=== PATIENT | female | born 1940 | race Caucasian/White ===

== ENCOUNTER 2020-01-18 09:05 | Observation (INO) ==
[2020-01-18] MEDS ORDERED: NS 0.9% 1000 ml BAG 1,000 ML IV ONE (09:07)
[2020-01-18] MEDS ORDERED: Iodixanol (CONTRAST) 320 MG/ML 100 ML SDV IV ONE (09:30)
[2020-01-18] MEDS ORDERED: Aspirin EC 81 mg TAB.EC (enteric coated) PO ONE (10:00)
[2020-01-18 10:01] LABS: ABS Eosinophils 0.1 10^3/ul (0-0.6); ABS Lymphocytes 0.9 10^3/ul (1.0-4.8); ABS Monocytes 0.5 10^3/ul (0-0.8); ABS Neutrophils 3.8 10^3/ul (1.5-7.7); Eosinophil % 2.2 %; Hematocrit 39 % (35-47); Hemoglobin 13.3 g/dL (12.0-16.0); Lymphocyte % 17.4 %; Mean Corpuscular HGB Conc 34 g/dL (31-36); Mean Corpuscular Hemoglobin 33 pg (27-31); Mean Corpuscular Volume 96 fL (80-97); Platelet Count 266 10^3/uL (150-450); Red Blood Count 4.09 10^6 /uL (3.70-4.87); Red Cell Distribution Width 15 % (10-15); White Blood Count 5.4 10^3/uL (3.5-10.8)
[2020-01-18 10:14] LABS: Albumin 4.1 g/dL (3.2-5.2); Albumin/Globulin Ratio 1.4 (1-3); BUN/Creatinine Ratio 24.7 (8-20); Calcium 9.3 mg/dL (8.6-10.3); EGFR African American 92.6 (>60); EGFR Non-African American 76.5 (>60); Potassium 3.7 mmol/L (3.5-5.0); Total Bilirubin 0.7 mg/dL (0.2-1.0); Total Protein 7.1 g/dL (6.4-8.9)
[2020-01-18 10:28] LABS: Activated Partial Thrombo Time 32.5 seconds (26.0-38.0); INR 1.08 (0.82-1.09)
[2020-01-18] MEDS ORDERED: Senna TAB 8.6 mg TAB PO PRN (11:22)
[2020-01-18] MEDS: NS 0.9% 1000 ml BAG 1,000 ML IV SCH (13:19)
[2020-01-18] MEDS: Enoxaparin 40 MG/0.4 ML SYR SUBCUT SCH (13:19)
[2020-01-18 15:58] LABS: Urine Appearance Clear; Urine Bilirubin Negative (Negative); Urine Blood Negative (Negative); Urine Color Yellow; Urine Glucose Negative (Negative); Urine Ketones Trace (Negative); Urine Nitrite Negative (Negative); Urine Protein Negative (Negative); Urine Specific Gravity 1.029 (1.010-1.030); Urine Urobilinogen Negative (Negative)
[2020-01-18 16:14] LABS: Urine Bacteria 1+ (Absent); Urine Red Blood Cell Trace(0-2/hpf) (Absent); Urine White Blood Cell Trace(0-5/hpf) (Absent)
[2020-01-19] MEDS: NS 0.9% 1000 ml BAG 1,000 ML IV SCH (05:45)
[2020-01-19 08:21] LABS: HDL Cholesterol 58.3 mg/dL
[2020-01-19] MEDS ORDERED: Vitamin THERAPEUTIC TAB PO SCH (09:00)
[2020-01-19] MEDS ORDERED: Aspirin EC 81 mg TAB.EC (enteric coated) PO SCH (09:00)
[2020-01-19 12:02] VITALS: BP 113/69
[2020-01-19 12:25] LABS: TSH Ultra Thyroid Stim Horm 2.84 mcIU/mL (0.34-5.60)
[2020-01-19 12:27] LABS: Free T4 0.9 ng/dL (0.61-1.12)
[2020-01-19] MEDS: Enoxaparin 40 MG/0.4 ML SYR SUBCUT SCH (14:11)
== END 2020-01-19 15:45 | disposition home or self-care (01) ==
LOC: MEDTELE 09:05 → ED 09:05
PROVIDERS: ADMIT Student in an Organized Health Care Education/Training Program; ATTEND Internal Medicine

== ENCOUNTER 2022-03-21 14:35 | Inpatient (IN) ==
[2022-03-21 15:38] LABS: ABS Lymphocytes 0.7 10^3/ul (1.0-4.8); ABS Neutrophils 8.2 10^3/ul (1.5-7.7); Eosinophil % 0.1 %; Hematocrit 41 % (35-47); Lymphocyte % 7.3 %; Mean Corpuscular HGB Conc 34 g/dL (31-36); Mean Corpuscular Hemoglobin 33 pg (27-31); Mean Corpuscular Volume 96 fL (80-97); Mean Platelet Volume 7.5 fL (7.4-10.4); Platelet Count 316 10^3/uL (150-450); Red Blood Count 4.28 10^6 /uL (3.70-4.87); Red Cell Distribution Width 15 % (10-15); White Blood Count 9.9 10^3/uL (3.5-10.8)
[2022-03-21 16:32] LABS: TSH Ultra Thyroid Stim Horm 2.17 mcIU/mL (0.34-5.60)
[2022-03-21 16:46] LABS: Albumin 4.4 g/dL (3.2-5.2); Albumin/Globulin Ratio 1.8 (1-3); C Reactive Protein 6.4 mg/L (<8.01); Calcium 9.2 mg/dL (8.6-10.3); Globulin 2.4 g/dL (2-4); Magnesium 1.8 mg/dL (1.9-2.7); Potassium 3.5 mmol/L (3.5-5.0); Total Protein 6.8 g/dL (6.4-8.9); eGFR CKD-EPI 92.1 (>60)
[2022-03-21] MEDS ORDERED: Ondansetron 4 mg VIAL 2 MG/ML 2 ml VIAL IV ONE (16:53)
[2022-03-21 16:56] LABS: Urine Appearance Clear; Urine Bilirubin 1+ (Small) (Negative); Urine Color Yellow; Urine Glucose Negative (Negative); Urine Ketones 4+ (>=160mg/dL) (Negative)
[2022-03-21 16:57] LABS: Urine Specific Gravity 1.034 (1.002-1.030)
[2022-03-21 16:58] LABS: Urine Blood Trace (Intact) (Negative); Urine Nitrite Negative (Negative); Urine Protein 1+ (30 mg/dL) (Negative); Urine Urobilinogen 0.2 (Negative) (Negative); Urine pH 5.5 (5.0-9.0)
[2022-03-21] MEDS ORDERED: Iohexol 350 (CONTRAST) 500 ML MDV IV ONE (17:17)
[2022-03-21 17:27] LABS: Urine Bacteria 1+ (Absent); Urine Red Blood Cell 3+(>10/hpf) (Absent); Urine Squamous Epithelial Cell Present (Absent); Urine White Blood Cell 3+(>20/hpf) (Absent)
[2022-03-21] MEDS ORDERED: ceFOXitin 2 GM IVPREMIX 2 GM/50 ML BAG IVPB ONE (20:04)
[2022-03-21] MEDS ORDERED: fentaNYL 100 mcg/2 ml 50 MCG/ML VIAL ONE (20:33)
[2022-03-21] MEDS ORDERED: Lidocaine 2% PF 5 ML VIAL ONE (20:33)
[2022-03-21] MEDS ORDERED: Rocuronium 50 mg VIAL 10 mg/ml 5 ml VIAL (50 mg) ONE (20:33)
[2022-03-21] MEDS ORDERED: Dexamethasone IV 4 MG/ML VIAL 1 ml VIAL ONE (20:33)
[2022-03-21] MEDS ORDERED: Propofol 10 MG/ML 20 ML BTL ONE (20:33)
[2022-03-21] MEDS ORDERED: ceFOXitin 2 GM IVPREMIX 2 GM/50 ML BAG ONE (20:35)
[2022-03-21] MEDS ORDERED: Ondansetron 4 mg VIAL 2 MG/ML 2 ml VIAL IV PRN ×2 (21:53→23:18)
[2022-03-21] MEDS ORDERED: HYDROmorphone 1 MG/1 ML SYRINGE IV PRN (21:53)
[2022-03-21] MEDS ORDERED: fentaNYL 100 mcg/2 ml 50 MCG/ML VIAL IV PRN (21:53)
[2022-03-21] MEDS ORDERED: Naloxone 0.4 mg VIAL 0.4 mg/ml 1 ml VIAL IV PRN (21:53)
[2022-03-21] MEDS ORDERED: Acetaminophen IV 1 GM/100ML 1,000 MG/100 ML BAG IV ONE (21:56)
[2022-03-21] MEDS ORDERED: Ondansetron 4 mg VIAL 2 MG/ML 2 ml VIAL ONE (22:45)
[2022-03-21] MEDS ORDERED: oxyCODONE/Acetamin 5/325 mg TAB PO PRN (23:18)
[2022-03-21] MEDS ORDERED: HYDROmorphone 0.5 MG/0.5 ML SYRINGE IV SLOW PU PRN (23:32)
[2022-03-22] MEDS: Lactated Ringers 1000 ml BAG 1,000 ML IV SCH ×2 (00:58→08:25)
[2022-03-22 06:01] LABS: ABS Lymphocytes 0.6 10^3/ul (1.0-4.8); ABS Neutrophils 8.5 10^3/ul (1.5-7.7); Hematocrit 33 % (35-47); Hemoglobin 11.6 g/dL (12.0-16.0); Mean Corpuscular HGB Conc 35 g/dL (31-36); Mean Corpuscular Hemoglobin 33 pg (27-31); Mean Corpuscular Volume 96 fL (80-97); Mean Platelet Volume 7.6 fL (7.4-10.4); Platelet Count 230 10^3/uL (150-450); Red Blood Count 3.46 10^6 /uL (3.70-4.87); Red Cell Distribution Width 15 % (10-15); White Blood Count 10.1 10^3/uL (3.5-10.8)
[2022-03-22 06:33] LABS: Calcium 7.5 mg/dL (8.6-10.3); Potassium 3.4 mmol/L (3.5-5.0); eGFR CKD-EPI 94.9 (>60)
[2022-03-22] MEDS ORDERED: Potassium Chlor 20 meq TAB.ER PO ONE (09:30)
[2022-03-22 10:11] LABS: Magnesium 1.6 mg/dL (1.9-2.7)
[2022-03-22] MEDS: D5W 1/2 NS KCl 20 meq 1000 ml 1,000 ML IV SCH ×2 (10:31→22:00)
[2022-03-22] MEDS ORDERED: Magnesium Sulfate IV 3 GM in NS 0.9% 100 ml BAG 100 ML IVPB ONE (12:00)
[2022-03-23 06:38] LABS: Hematocrit 34 % (35-47); Hemoglobin 11.6 g/dL (12.0-16.0)
[2022-03-23 07:02] LABS: Calcium 7.4 mg/dL (8.6-10.3); Magnesium 2.3 mg/dL (1.9-2.7); Potassium 3.7 mmol/L (3.5-5.0); eGFR CKD-EPI 94.4 (>60)
[2022-03-23] MEDS: D5W 1/2 NS KCl 20 meq 1000 ml 1,000 ML IV SCH (08:05)
[2022-03-24 11:11] VITALS: BP 112/72
== END 2022-03-24 13:00 | disposition home or self-care (01) | DRG 355 ==
LOC: ED 14:35 → EDHOLD 20:01 → AA 20:13 → SSU 03-22 00:14
PROVIDERS: ADMIT Surgery; ATTEND Surgery